=== PATIENT | female | born 1990 | race Two or more races ===

== ENCOUNTER 2019-05-20 23:11 | Emergency (ER) | payer OTHER ==
[~2019-05-20] VITALS: Ht 152.4 cm; Wt 84.8 kg
[2019-05-20] MEDS ORDERED: PRENATABS RX T1 EACH (23:21)
== END 2019-05-21 03:03 | disposition home or self-care (01) ==
LOC: ER 23:11
DX: O20.0 Threatened abortion (principal)

== ENCOUNTER 2019-12-06 11:55 | Inpatient (IN) | payer OTHER ==
[~2019-12-06] VITALS: Ht 152.4 cm; Wt 2.3 kg
[~2019-12-06 11:55] MED LIST: PRENATABS RX T1 EACH
[2019-12-09] MEDS ORDERED: PRENATABS RX T1 EACH PO (10:55)
[2019-12-09] MEDS ORDERED: SIMETHICONE125 M1 PO (10:55)
[2019-12-09] MEDS ORDERED: KAOPECTATE240 MG PO (10:55)
[2019-12-09] MEDS ORDERED: IBUPROFEN800 MG PO (10:55)
== END 2019-12-09 12:40 | disposition home or self-care (01) | DRG 788 ==
LOC: OB/GYN 11:55 → LDR 11:55 → OB/GYN 19:47
PROVIDERS: ADMIT Obstetrics & Gynecology
PROC: 3E033VJ Introduction of Other Hormone into Peripheral Vein, Percutaneous Approach (ICD-10-PCS; 2019-12-06)
PROC: 3E0P7VZ Introduction of Hormone into Female Reproductive, Via Natural or Artificial Opening (ICD-10-PCS; 2019-12-06)
PROC: 4A1HXCZ Monitoring of Products of Conception, Cardiac Rate, External Approach (ICD-10-PCS; 2019-12-06)
PROC: 10D00Z1 Extraction of Products of Conception, Low, Open Approach (ICD-10-PCS; principal; 2019-12-06 17:00)
DX: O82 Encounter for cesarean delivery without indication (principal); O64.8XX0 Obstructed labor due to other malposition and malpresentation, not applicable or unspecified; Z3A.37 37 weeks gestation of pregnancy; Z37.0 Single live birth; Z22.330 Carrier of Group B streptococcus